=== PATIENT | female | born 1990 | race Caucasian/White ===

== ENCOUNTER 2019-02-24 15:29 | Emergency (ER) | payer OTHER ==
--- NOTE | 2019-02-24 15:40 | ED Physician Documentation ---
PD HPI FEMALE - Stated complaint Stated Complaint: ABD PX/FEMALE - Chief complaint Chief Complaint: Abd Pain - History obtained from History obtained from: Patient - History of Present Illness Timing - onset: Today Timing - duration: Hours (1.5) Timing - details: Abrupt onset Associated symptoms: No: Fever Contributing factors: OB-[employer] AND [employer] DELIVERY [employer]IST History: Prior ectopic Similar symptoms before: Diagnosis ([place] She was treated with 2 rounds of methotrexate last one being 12 or 13 days ago. Her quantitative hCG had maxed at 6000 it was down to 2607 days ago. She is O- and received RhoGam at the time she had the methotrexate.) - Additional information Additional information: This is a 28-year-old woman who was diagnosed with an ectopic and underwent underwent 2 rounds of methotrexate with falling quantitative hCGs. Today she had sudden sharp pain in the left pelvis that radiated down the left leg and upper back. It lasted for about 10 minutes pretty intensely when she felt lightheaded and nauseous. She thought she was going to have diarrhea but did not. She did not take anything for the pain and it eased off quite a bit now. She is had some nasal congestion but no fevers. No dysuria. No history of kidney stones. Patient is O- and received RhoGam 2 weeks ago when she had the methotrexate. Review of Systems Constitutional: denies: Fever Nose: reports: Congestion GI: reports: Abdominal Pain, Nausea. denies: Vomiting, Diarrhea : reports: Other (Known ectopic ). denies: Dysuria Musculoskeletal: reports: Back pain PD PAST MEDICAL HISTORY - Allergies Allergies/Adverse Reactions: Allergies Allergy/AdvReac Type Severity Reaction Status Date / Time No Known Drug Allergies Allergy Verified 02/24/19 15:44 PD ED PE NORMAL - Vitals Vital signs reviewed: Yes - General General: Alert and oriented X 3, No acute distress, Well developed/nourished - Cardiac Cardiac: RRR, No murmur - Respiratory Respiratory: No respiratory distress - Abdomen Abdomen: Soft, Other (Tenderness in the right suprapubic/pelvic area. No guarding.) - Female Female : Pt declined (Patient stated her OB told her not to let anybody do a pelvic exam.) - Derm Derm: Normal color, Warm and dry, No rash - Neuro Neuro: Alert and oriented X 3, No motor deficit, No sensory deficit, Normal speech Results - Vitals Vitals: Vital Signs - 24 hr 02/24/19 02/24/19 15:33 18:27 Temperature 37.1 C Heart Rate 82 76 Respiratory 18 18 Rate Blood Pressure 118/70 116/73 O2 Saturation 100 100 Oxygen O2 Source Room air - Labs Labs: Laboratory Tests 02/24/19 02/24/19 02/24/19 15:50 16:00 16:00 WBC 5.3 RBC 4.40 Hgb 13.2 Hct 38.7 MCV 88.0 MCH 30.0 MCHC 34.1 RDW 13.7 Plt Count 189 MPV 8.5 Neut # (Auto) 3.2 Lymph # (Auto) 1.7 Wirt # (Auto) 0.4 Eos # (Auto) 0.1 Baso # (Auto) 0.0 Absolute Nucleated RBC 0.00 Nucleated RBC % 0.0 HCG, Quant 530.23 Urine Color YELLOW Urine Clarity CLEAR Urine pH 7.0 Ur Specific [place] <=1.005 Urine Protein NEGATIVE Urine Glucose (UA) NEGATIVE Urine Ketones NEGATIVE Urine Occult Blood NEGATIVE Urine Nitrite NEGATIVE Urine Bilirubin NEGATIVE Urine Urobilinogen 0.2 (NORMAL) Ur Leukocyte Esterase NEGATIVE Ur Microscopic Review NOT INDICATED Urine Culture Comments NOT INDICATED PD MEDICAL DECISION MAKING - ED course Complexity details: re-evaluated patient, d/w patient, d/w event management consultant ED course: hCG level was discussed with the patient. She does not have a's acute abdomen. The ultrasound still showed the ectopic but without free fluid in the pelvis. I did consult with Dr. Chowdhury.[place] - Consults Consults: Consulted (name) (Dr. Chowdhury came into the emergency department and evaluated the patient. Does not feel that she is a surgical candidate at this time with appropriately falling beta hCGs. No need for additional RhoGam.) Departure - Departure Disposition: 01 Home, Self Care Clinical Impression: Ectopic Qualifiers: Location of ectopic : ovarian Intrauterine status: without intrauterine Laterality: left Qualified Code(s): O00.202 - Left ovarian without intrauterine Condition: Good Instructions: ED Preg Ectopic Methotrexate Tx Follow-Up: NISA Perry [Provider Group] Comments: [place] him know the outcome of tonight's evaluation. Follow-up with them as directed by them. Return to the emergency department if you have another increase in pain especially if it persists, you feel dizzy or pass out or other problems arise.
[2019-02-24 16:03] LABS: BILIRUBIN,URINE NEGATIVE (NEGATIVE); GLUCOSE, URINE (UA) NEGATIVE (NEGATIVE); KETONES,URINE (UA) NEGATIVE (NEGATIVE); LEUKOCYTE ESTERASE, URINE NEGATIVE (NEGATIVE); NITRITE,URINE NEGATIVE (NEGATIVE); OCCULT BLOOD,URINE NEGATIVE (NEGATIVE); PROTEIN,URINE NEGATIVE (NEGATIVE); UROBILINOGEN,URINE 0.2 (NORMAL) E.U./dL (NORMAL)
[2019-02-24 16:04] LABS: CLARITY,URINE CLEAR (CLEAR)
[2019-02-24 16:29] LABS: BASOPHILS % (AUTO) 0.5 %; EOSINOPHILS # (AUTO) 0.1 10^3/uL (0.0-0.7); EOSINOPHILS % (AUTO) 1.7 %; HGB - HEMOGLOBIN 13.2 g/dL (12.0-16.0); LYMPHOCYTES # (AUTO) 1.7 10^3/uL (1.5-3.5); LYMPHOCYTES % (AUTO) 31.3 %; MEAN CORPUSCULAR HGB CONC 34.1 g/dL (32.0-36.0); MEAN PLATELET VOLUME 8.5 fL (7.9-10.8); MONOCYTES # (AUTO) 0.4 10^3/uL (0.0-1.0); NEUTROPHILS # (AUTO) 3.2 10^3/uL (1.5-6.6); NEUTROPHILS % (AUTO) 59.5 %; PLT - PLATELET COUNT 189 10^3/uL (130-450); RED CELL DISTRIBUTION WIDTH 13.7 % (12.0-15.0); WHITE BLOOD COUNT 5.3 x10^3/uL (4.8-10.8)
--- NOTE | 2019-02-24 17:18 | Ultrasound Report ---
Reason: ectoopic , had MTX, pain today Procedure Date: 02/24/2019 Accession Number: [id number] / [id number] Procedure: US - OB First Trimester CPT Code: FULL RESULT: EXAM: FIRST TRIMESTER OBSTETRIC ULTRASOUND (Less than 11 weeks) EXAM DATE: 02/24/2019 04:17 PM. CLINICAL HISTORY: Ectopic , had MTX, pain today. LMP: Unknown. COMPARISONS: None. TECHNIQUE: Transabdominal and transvaginal ultrasound examination with static image documentation. CLINICAL DATES: ASSESSMENT: Gestational Sac: There is a 2.4 x 2.2 x 2.0 cm thick-walled left adnexal paraovarian cystic structure which appears to contain a yolk sac. Mean diameter 8.9 mm corresponding to 4 weeks 6 day gestation. No intrauterine gestation seen. MATERNAL STRUCTURES: Uterus: Retroverted. Unremarkable. The endometrium measures 6 mm in thickness and is normal appearing. Cervix: Closed. Right Ovary/Adnexa: The ovary measures 2.9 x 1.6 x 2.2 cm, volume 5.3 cc. Unremarkable. Left Ovary/Adnexa: The ovary measures 3.9 x 2.1 x 1.5 cm, volume 6.4 cc. Contains an involuting 1.6 cm corpus luteal cyst. Free Fluid: There is a small volume of simple left pelvic fluid. Other: None. IMPRESSION: 1. Left adnexal ectopic . No evidence of rupture. RADIA The call report notification system was initiated by Dr. Bunny Diaz at 05:08 PM on 02/24/2019. The above call report findings were discussed with Yamilet Grace by Dr. Bunny Diaz at 05:11 PM on 02/24/2019.
[2019-02-24 18:27] VITALS: BP 116/73
== END 2019-02-24 18:56 | disposition home or self-care (01) ==
LOC: ED 15:29
DX: O00.202 Left ovarian pregnancy without intrauterine pregnancy (principal)
CPT/HCPCS: 36415; 76801; 76817; 81001; 81003; 84702; 85025; 86850; 86870; 86900; 86901; 87086; 99283

== ENCOUNTER 2019-04-15 07:24 | Day surgery (SDC) | payer OTHER ==
[2019-04-15] MEDS ORDERED: METHYLENE BLUE 0.5% 50 MG/10 ML AMPULE ONE ×2 (07:25→08:36)
[2019-04-15] MEDS ORDERED: SILVER NITRATE APPLICATOR TOP ONE (07:25)
[2019-04-15] MEDS ORDERED: BUPIVACAINE 0.25% PF 30 ML VIAL ONE (07:26)
[2019-04-15] MEDS ORDERED: BUPIVACAINE 0.25%-EPI 1:200000 PF 30 ML VIAL ONE (07:26)
--- NOTE | 2019-04-15 07:48 | ANESTHESIA ---
Pre-Anesthesia VS, & Labs - Diagnosis ectopic - Procedure diagnostic laparoscopy,d&c, possible oopherectomy and salpingectomy Vital Signs: Temp Pulse Resp BP Pulse Ox 36.4 C L 77 16 98/78 100 04/15/19 07:43 04/15/19 07:43 04/15/19 07:43 04/15/19 07:43 04/15/19 07:43 Height 5 ft 6.14 in Weight (kg) 58.7 kg Body Mass Index 20.6 - NPO >8 hours - Is Patient ?: Yes Home Medications and Allergies Home Medications: Ambulatory Orders No Known Home Medications 04/14/19 No Known Home Medications 04/14/19 Allergies/Adverse Reactions: Allergies Allergy/AdvReac Type Severity Reaction Status Date / Time No Known Drug Allergies Allergy Verified 04/14/19 13:50 Anes History & Medical History - Anesthetic History Anesthesia Complications: reports: No previous complications Family history of Anesthesia Complications: Denies Family history of Malignant Hyperthermia: Denies - Medical History Cardiovascular: reports: None Pulmonary: reports: None Gastrointestinal: reports: None Urinary: reports: Other Musculoskeletal: reports: None Endocrine/Autoimmune: reports: None Skin: reports: None Smoking Status: Never smoker - Surgical History Gynecologic: Other Orthopedic: Other Exam General: Alert, Oriented x3, Cooperative, No acute distress Dental: Other (braceses) Mouth Openin Fingerbreadth Neck Mobility: Normal Mallampati classification: II Thyromental Distance: greater than 6 cm Respiratory: Lungs clear, Normal breath sounds, No respiratory distress, No accessory muscle use Cardiovascular: Regular rate, Normal S1, Normal S2, No murmurs Plan Anesthesia Type: General Consent for Procedure(s) Verified and Reviewed: Yes Code Status: Attempt Resuscitation ASA classification: 1-Healthy patient Is this case an emergency?: No
[2019-04-15] MEDS ORDERED: LACTATED RINGERS 1,000 ML IV ONE ×2 (07:56→11:04)
[2019-04-15 08:18] LABS: HCG UR QUAL NEGATIVE
[2019-04-15] MEDS ORDERED: SCOPOLAMINE PATCH TOP ONE (08:22)
[2019-04-15] MEDS ORDERED: CEFAZOLIN SODIUM IN 0.9 % NACL 2 GM/100 ML BAG IV ONE (08:25)
[2019-04-15] MEDS ORDERED: BUPIVACAINE 0.25%-EPI 1:200000 PF 10 ML VIAL SUBQ ONE ×2 (09:28)
[2019-04-15] MEDS ORDERED: BUPIVACAINE 0.25% PF 30 ML VIAL SUBQ ONE ×2 (09:28)
[2019-04-15] MEDS ORDERED: METHYLENE BLUE 0.5% 50 MG/10 ML AMPULE IR ONE ×2 (09:28)
[2019-04-15] MEDS ORDERED: SUGAMMADEX 200 MG/2 ML VIAL IVP ONE (10:44)
[2019-04-15] MEDS: fentaNYL 100 MCG/2 ML VIAL ONE ×2 (11:03→11:11)
[2019-04-15] MEDS ORDERED: HYDROcod/ACETAM 10 MG/325 MG TABLET PO PRN (11:06)
[2019-04-15] MEDS ORDERED: ONDANSETRON 4 MG/2 ML VIAL IVP PRN (11:06)
--- NOTE | 2019-04-15 11:08 | OPERATIVE REPORT ---
Operative Report - General Planned Procedure: Laparoscopy, removal of ectopic , chromopertubation, suction dilatation and curettage Pre-Op Diagnosis: Ectopic Procedure Performed: Laparoscopy, resection of cornual ectopic , chromopertubation, suction dilatation and curettage Post Op Diagnosis: Left cornual ectopic - Procedure Note Primary Surgeon: Dr. Ashley Leiva Secondary Surgeon: Dr. Mariano Marie Anesthesia Provider: Dr. Aaron Finn Anesthesia Technique: General ET tube, Local Pathology: 1. Uterine contents 2. Left cornual serosa and suspected ectopic IV Fluids (mL): 800 Estimated Blood Loss (mL): 50 Urine Output (mL): 30 Indications: The patient is a 28-year-old 4 para 2-0-2-2 with history of ectopic x2. She has a history of a left ectopic and underwent a suspected left salpingectomy; however, her most recent ectopic also appeared to originate from the left side. She is status post 2 doses of methotrexate at 50 mg/m. She was monitored in the [facility] and in the emergency room x1 for pain. The second dose of methotrexate was administered when her quantitative hCG did not decline as expected. However, after the second it did decline within standards. She then went on a brief trip out of state and upon return continued to have a positive but low serum hCG. This level then increased and doubled but remained low. She had been abstaining from intercourse, so new was not possible, and rise in HCG was not consistent with a viable intrauterine . A repeat pelvic ultrasound showed continued presence of a 1.6 x 2.2 x 3.3 cm echogenicity between the left ovary and the uterus, consistent with a suspected ectopic . She also had a new unilocular right ovarian cyst, measuring 3.5 x 4.2 x 4.5 cm. The echoes of the cyst were consistent with a suspected hemorrhagic cyst. The patient was desiring surgical evaluation for the persistent ectopic. She was also desiring surgery to evaluate whether the left fallopian tube was truly absent or residual from her last surgery. Additionally, she has a family history of endometriosis and wondered if that may be present and affecting her fertility. On the day of surgery her urine hCG was negative in the preop hold area. However, again the patient desired diagnostic laparoscopy to further evaluate the pelvis and the status of the fallopian tubes. The plan for surgery was discussed with the patient and included laparoscopic evaluation chromopertubation of the fallopian tubes, removal of the ectopic , and a suction dilation and curettage for a possible intrauterine that failed. The risks, benefits, limitations, alternatives, and expectations of surgery were discussed. The consent was reviewed and signed prior to the date of surgery. Findings: Exam under anesthesia: The uterus was 7 weeks in size and retroverted. A right adnexal fullness was appreciated and consistent with the known right ovarian cystic mass. A 2 to 3 cm rounded mass was present at the left adnexa as well. Operative findings: The residual cornual region of the left fallopian tube was enlarged approximately 2 to 3 cm, suspicious for a cornual fallopian tube on the left versus a cornual uterine . The uterus was otherwise normal in appearance. The right fallopian tube was normal in appearance. The right ovary was enlarged with an approximately 4-1/2 cm hemorrhagic-appearing cyst. The left ovary was normal in appearance. The appendix, liver, and gallbladder edge were visualized and appeared normal. There were no endometriosis lesions or adhesions noted. Opening of the left cornual region of the uterus noted a small to moderate amount of tissue s uspicious for products of conception. The overlying corneal serosa was removed as well as the underlying tissue and sent for pathology. - Other Other Information/Narrative: The patient was taken to the main operating room, where general endotracheal anesthesia was administered. She was then placed in low dorsal lithotomy position with her lower extremities in yellow-fin stirrups. Perineum, vagina, and abdomen were prepped and draped in sterile fashion, and desai catheter was placed. Surgical time-out was then performed. Sterile bivalve speculum was then placed, and a single-toothed tenaculum used to grasp the anterior lip of the cervix. Local anesthesia was administered with 0.25% marcaine with epinephrine injected at the 0200, 0400, 0700, and 1000 positions. The cervical os was then serially dilated with Hilario dilators until a 7 mm curved, rigid suction curette could be introduced. Suction curettage was then performed, followed by sharp curettage. A small amount of tissue, clot, and blood was obtained. Good crie was noted on all four hull of the uterus. The suction curette was then reintroduced to remove any remaining products of conception. A Zumi uterine manipulator (primed with dilute methylene blue for chromopertubation) was placed, then the tenaculum and speculum were removed. Attention was then turned to the patients abdomen for laparoscopy. Local anesthetic with 0.25% Marcaine was injected infraumbilically, and a 7 mm vertical skin incision was made with a scalpel. The zero degree 5 mm laparoscope was inserted into a 5 mm trocar and advanced into the abdominal cavity using Optiview technique. Gas insufflation was initiated as the trocar obturator was removed and camera replaced. Correct intraperitoneal placement of the trocar was noted upon further insufflation. Additional local anesthetic was administered, then a second and third 5 mm port placed at the right then left lower quadrants under direct visualization with the laparoscope. The patient was placed in Trendelenburg. Findings were as noted above. Chromopertubation was then performed, injecting dilute methylene blue into the uterine cavity. Spillage was noted easily from the right fallopian tube, and a small amount emanated from the central portion of the cornual tubal ectopic. Attention was then turned to the removal of the cornual left tube and ectopic . Using a PlasmaKinetic, the tubal mucosa was cauterized and cut to open the residual tube. Tissue consistent with products of conception was removed with a grasper and sent for pathology. Once the tissue was removed, cautery was applied to control any bleeding, and the site irrigated. The depth of dissection appeared to be mainly residual tube with minimal to no dissection into the myometrium. The serosa was closed with a baseball suture technique using an 0 V-Lock suture. The umbilical port was enlarged to a 12 mm in order to placed the V-Lock device. Hemostasis was ensured, and the pelvis was copiously irrigated. Repeat chromopertubation with compression on the right proximal tube did not result in any spillage from the left side. The instruments were then removed from the abdomen, and the carbon dioxide gas allowed to escape. The trocars were removed from the abdomen. The umbilical incision was closed with 0 vicryl at the level of the fascia, then the skin at the umbilical and lower quadrant ports were then closed with Dermabond skin glue. The uterine manipulator was then removed, and the tenaculum sites hemostatic after application of silver nitrate. The patient was then repositioned supine, extubated, and awakened. The patient tolerated the procedure well. Sponge, lap, and needle count were correct x 3. She was taken to the recovery room in stable condition.
[2019-04-15] MEDS ORDERED: ONDANSETRON 4 MG/2 ML VIAL ONE (12:13)
[2019-04-15] MEDS ORDERED: HYDROcod/ACETAM 10 MG/325 MG TABLET ONE (12:49)
[2019-04-15 13:50] VITALS: BP 107/63
== END 2019-04-15 07:25 | disposition home or self-care (01) ==
LOC: SDS 07:24
PROVIDERS: ATTEND Obstetrics & Gynecology
PROC: 3E0P8KZ Introduction of Other Diagnostic Substance into Female Reproductive, Via Natural or Artificial Opening Endoscopic (ICD-10-PCS; 2019-04-15)
PROC: 10T24ZZ Resection of Products of Conception, Ectopic, Percutaneous Endoscopic Approach (ICD-10-PCS; principal; 2019-04-15 08:30)
PROC: 0UDB7ZZ Extraction of Endometrium, Via Natural or Artificial Opening (ICD-10-PCS; 2019-04-15 08:30)
DX: O00.80 Other ectopic pregnancy without intrauterine pregnancy (principal); N83.201 Unspecified ovarian cyst, right side; Z84.2 Family history of other diseases of the genitourinary system
CPT/HCPCS: 58350; 59150; 59899; 81025; A9270; J0690; J3490; J7120

== ENCOUNTER 2019-07-21 11:22 | Emergency (ER) | payer OTHER ==
--- NOTE | 2019-07-21 13:42 | Ultrasound Report ---
Reason: prior ectopics pain early Procedure Date: 07/21/2019 Accession Number: [id number] / [id number] Procedure: US - OB First Trimester CPT Code: FULL RESULT: EXAM: FIRST TRIMESTER OBSTETRIC ULTRASOUND (Less than 11 weeks) EXAM DATE: 07/21/2019 12:47 PM. CLINICAL HISTORY: First trimester . LMP: 06/15/2019. COMPARISONS: None. TECHNIQUE: Transabdominal and transvaginal ultrasound examination with static image documentation. CLINICAL DATES: EGA 5 weeks 1 day with LU 03/21/2020 based on LMP. ASSESSMENT: Gestational Sac: Single intrauterine. Mean gestational sac diameter: 3.9 mm = 5 weeks 1 day. Embryo: Not visualized. Cardiac activity: Not applicable. Yolk sac: Not visualized. Amniotic fluid: Not accurately assessed at this gestational age. Early placenta: Not visible at this gestational age. Other: No perigestational fluid collection demonstrated. MATERNAL STRUCTURES: Uterus: Retroverted. Unremarkable. Cervix: Closed. Right Ovary/Adnexa: The ovary measures 3.8 x 3.0 x 3.5 cm, volume 20.8 cc. Small 1.5 cm collapsed corpus luteal cyst is seen within otherwise unremarkable. Left Ovary/Adnexa: The ovary measures 2.3 x 1.3 x 1.8 cm, volume 2.8 cc. Unremarkable. Free Fluid: None. Other: None. IMPRESSION: 1. Single intrauterine gestation of uncertain viability with tiny intrauterine gestational sac seen. No pole or yolk sac is seen at this time. Findings may represent early intrauterine . Missed is not excluded. 2. No acute pelvic abnormality is demonstrated otherwise. RADIA
[2019-07-21 13:50] VITALS: BP 120/74
--- NOTE | 2019-07-21 13:59 | ED Physician Documentation ---
PD HPI FEMALE - Stated complaint Stated Complaint: FEMALE /5 WKS OB - Chief complaint Chief Complaint: Abd Pain - History obtained from History obtained from: Patient - History of Present Illness Timing - onset: Today Timing - duration: Hours Timing - details: Gradual onset, Still present Associated symptoms: Pelvic pain Contributing factors: OB-GENERAL DUTY NURSE History: G (5), P (2), Prior ectopic (2) Similar symptoms before: Diagnosis (ectopic) Recently seen: Clinic (this morning) - Additional information Additional information: 28-year-old female who is recently become has had 2 prior ectopic pregnancies in she has an early and she has developed some pain in the left lower pelvis. This is the area that she had her last ectopic. She was asked by her provider to come to the emergency department for evaluation. She has had rising quantitative hCG that appears to be rising appropriately. Review of Systems Constitutional: denies: Fever Eyes: denies: Decreased vision Ears: denies: Ear pain Nose: denies: Congestion Throat: denies: Sore throat Cardiac: denies: Chest pain / pressure Respiratory: denies: Cough GI: reports: Abdominal Pain. denies: Nausea, Vomiting : denies: Dysuria, Frequency Musculoskeletal: denies: Neck pain, Back pain, Extremity pain Neurologic: denies: Generalized weakness, Focal weakness, Numbness PD PAST MEDICAL HISTORY - Past Medical History Cardiovascular: None Respiratory: None Endocrine/Autoimmune: None GI: None : Other HEENT: None Psych: None Musculoskeletal: None Derm: None - Past Surgical History Ortho: Other /GENERAL DUTY NURSE: Other - Present Medications Home Medications: Ambulatory Orders Medication Instructions Recorded Confirmed No Known Home Medications 04/14/19 04/14/19 - Allergies Allergies/Adverse Reactions: Allergies Allergy/AdvReac Type Severity Reaction Status Date / Time No Known Drug Allergies Allergy Verified 04/14/19 13:50 - Social History Does the pt smoke?: No Smoking Status: Never smoker Does the pt drink ETOH?: Yes PD ED PE NORMAL - Vitals Vital signs reviewed: Yes (tachy ) - General General: Alert and oriented X 3, No acute distress, Well developed/nourished - HEENT HEENT: Atraumatic, PERRL, EOMI - Neck Neck: Supple, no meningeal sign, No bony TTP - Respiratory Respiratory: No respiratory distress - Derm Derm: Normal color, Warm and dry, No rash - Extremities Extremities: No deformity, No edema - Neuro Neuro: Alert and oriented X 3, hog counter 2-12 intact, No motor deficit, No sensory deficit, Normal speech Eye Opening: Spontaneous Motor: Obeys Commands Verbal: Oriented GCS Score: 15 - Psych Psych: Normal mood, Normal affect Results - Vitals Vitals: Vital Signs - 24 hr 07/21/19 07/21/19 11:28 13:49 Temperature 34.9 C L Heart Rate 117 H 114 H Respiratory 14 18 Rate Blood Pressure 133/65 H 120/74 O2 Saturation 100 100 Oxygen O2 Source Room air - Labs Labs: Laboratory Tests 07/21/19 11:55 HCG, Quant [id number] - Rads (name of study) OB u/s Radiology: Prelim report reviewed (Impression: 1. Single intrauterine gestation of uncertain viability with tiny intrauterine gestational sac seen. No pole or yolk sac is seen at this time. Findings may represent early intrauterine . Missed is not excluded. 2 No acute pelvic abnormality is demonstrated otherwise.), EMP read indepedently, See rad report PD MEDICAL DECISION MAKING - ED course Complexity details: considered differential, d/w patient, d/w family ED course: 28-year-old female with a history of ectopic has pain in the left side where she is had a previous ectopic. Ultrasound imaging today reveals a 5-week gestational sac in the uterus and the patient is quite happy about this. Departure - Departure Disposition: 01 Home, Self Care Clinical Impression: Intrauterine Condition: Stable Instructions: ED Care Follow-Up: Elizabteh Rosenthal MD [Primary Care Provider] -
== END 2019-07-21 14:08 | disposition home or self-care (01) ==
LOC: ED 11:22
DX: O99.89 Other specified diseases and conditions complicating pregnancy, childbirth and the puerperium (principal); R10.9 Unspecified abdominal pain; Z3A.01 Less than 8 weeks gestation of pregnancy
CPT/HCPCS: 36415; 76801; 76817; 84702; 99284

== ENCOUNTER 2023-08-17 22:24 | Emergency (ER) | payer OTHER ==
[2023-08-17 23:13] LABS: BASOPHILS % (AUTO) 0.4 %; EOSINOPHILS # (AUTO) 0.1 10^3/uL (0.0-0.7); EOSINOPHILS % (AUTO) 1.1 %; HCT - HEMATOCRIT 39.5 % (37.0-47.0); HGB - HEMOGLOBIN 13.4 g/dL (12.0-16.0); LYMPHOCYTES # (AUTO) 2.1 10^3/uL (1.5-3.5); LYMPHOCYTES % (AUTO) 37.9 %; MEAN CORPUSCULAR HEMOGLOBIN 29.5 pg (27.0-31.0); MEAN CORPUSCULAR HGB CONC 33.9 g/dL (32.0-36.0); MONOCYTES # (AUTO) 0.4 10^3/uL (0.0-1.0); MONOCYTES % (AUTO) 6.3 %; NEUTROPHILS % (AUTO) 54.1 %; PLT - PLATELET COUNT 194 10^3/uL (130-450); RED BLOOD COUNT 4.54 10^6/uL (4.20-5.40); RED CELL DISTRIBUTION WIDTH 12.1 % (12.0-15.0); WHITE BLOOD COUNT 5.6 x10^3/uL (4.8-10.8)
[2023-08-17 23:31] LABS: ALBUMIN 4.9 g/dL (3.2-5.5); ALBUMIN/GLOBULIN RATIO 2.1 (1.0-2.2); BILIRUBIN,TOTAL 0.3 mg/dL (0.2-1.0); CALCIUM 9.8 mg/dL (8.5-10.3); CREATININE 0.8 mg/dL (0.6-1.3); POTASSIUM 3.3 mmol/L (3.5-4.5); TOTAL PROTEIN 7.2 g/dL (6.4-8.9)
[2023-08-17 23:35] LABS: HCG UR QUAL POSITIVE
--- NOTE | 2023-08-18 00:38 | Ultrasound Report ---
PROCEDURE: OB First Trimester w/TV INDICATIONS: pelvic pain, R OUTSIDE/PRIOR DATING DATA: Last menstrual period (LMP): Unknown. LMP-based estimated date of delivery (LU): Unknown. First dating scan (date and location): 08/17/2023. Estimated date of delivery (LU) from first dating scan: Not applicable. TECHNIQUE: Real-time scanning was performed of the fetus and maternal pelvic organs, with image documentation. Endovaginal scanning was also performed to better visualize the fetus and maternal ovaries. COMPARISON: None. FINDINGS: Intrauterine gestational sac is present measuring 4 mm corresponding to 5 weeks 1 day. No f etal pole is identified. Maternal organs: Echogenic focus is present in the right ovary. It measures approximately 4 mm. A le ft corpus luteal cyst is present. IMPRESSION: Intrauterine gestational sac without visualized pole corresponding to 5 weeks 1 day. Recommend short interval imaging follow-up in correlation of beta hCG levels for correlation of potential bligh kris ovum or progression. Focal area of increased echogenicity within the right ovary overall nonspecific. This could represent a small area of calcification. Reviewed by: Andreina Coffey MD on 08/18/2023 12:37 AM PST Approved by: Andreina Coffey MD on 08/18/2023 12:37 AM PST Station ID: [id number]
--- NOTE | 2023-08-18 00:52 | ED Physician Documentation ---
History of Present Illness - Stated complaint Stated Complaint: LT LOWER SIDE PX - Chief complaint Chief Complaint: Abd Pain - Additonal information Additional information: Patient 33-year-old female presenting to the emergency department with left lower pelvic pain. This is in the setting of early identified . She does report a past medical significant for 2 ectopic pregnancies. Reports that she had similar pain during her previous ectopic . Pain has been ongoing x 1 day, is intermittent in nature, is not associated with nausea, vomiting or diarrhea. She denies any other complaints associated with her visit to the emergency department today. She is taking a vitamin but no prescription medications.She denies any vaginal discharge, painful urination or vaginal bleeding. Review of Systems Constitutional: denies: Fever Eyes: denies: Loss of vision Ears: denies: Loss of hearing Nose: denies: Rhinorrhea / runny nose Throat: denies: Dental pain / toothache Cardiac: denies: Chest pain / pressure Respiratory: denies: Dyspnea GI: reports: Abdominal Pain : denies: Dysuria PD PAST MEDICAL HISTORY - Past Medical History Past Medical History: Yes Cardiovascular: None Respiratory: None Endocrine/Autoimmune: None GI: None COIL WINDER: Ectopic : Other HEENT: None Psych: None Musculoskeletal: None Derm: None - Past Surgical History Past Surgical History: Yes Ortho: Other /COIL WINDER: Other - Present Medications Home Medications: Ambulatory Orders Medication Instructions Recorded Confirmed No Known Home Medications 04/14/19 04/14/19 - Allergies Allergies/Adverse Reactions: Allergies Allergy/AdvReac Type Severity Reaction Status Date / Time No Known Drug Allergies Allergy Verified 08/17/23 22:30 - Social History Does the pt smoke?: No Smoking Status: Never smoker Does the pt drink ETOH?: Yes Does the pt have substance abuse?: No - Immunizations Immunizations are current?: Yes PD ED PE NORMAL - General General: Alert and oriented X 3 - HEENT HEENT: Atraumatic - Neck Neck: Supple, no meningeal sign - Cardiac Cardiac: RRR - Respiratory Respiratory: No respiratory distress - Abdomen Abdomen: Normal bowel sounds - Female Female : Deferred - Rectal Rectal: Deferred Results - Vitals Vitals: Vital Signs - 24 hr 08/17/23 08/18/23 08/18/23 22:30 00:34 01:24 Temperature 36.5 C Heart Rate 119 H 83 83 Respiratory 16 18 18 Rate Blood Pressure 130/80 109/66 109/66 O2 Saturation 100 97 98 Oxygen O2 Source Room air - Labs Labs: Laboratory Tests 08/17/23 08/17/23 08/17/23 23:08 23:08 23:15 WBC 5.6 RBC 4.54 Hgb 13.4 Hct 39.5 MCV 87.0 MCH 29.5 MCHC 33.9 RDW 12.1 Plt Count 194 MPV 10.0 Neut # (Auto) 3.0 Lymph # (Auto) 2.1 Sampson # (Auto) 0.4 Eos # (Auto) 0.1 Baso # (Auto) 0.0 Absolute Nucleated RBC 0.00 Nucleated RBC % 0.0 Sodium 138 Potassium 3.3 L Chloride 107 Carbon Dioxide 24 Anion Gap 7.0 BUN 15 Creatinine 0.8 Estimated GFR (MDRD) 84 L Glucose 130 H Calcium 9.8 Total Bilirubin 0.3 AST 12 ALT 9 L Alkaline Phosphatase 54 Total Protein 7.2 Albumin 4.9 Globulin 2.3 Albumin/Globulin Ratio 2.1 Lipase 70 Beta HCG, Quant Urine Color Cancelled Urine Clarity Cancelled Urine pH Cancelled Ur Specific [place] Cancelled Urine Protein Cancelled Urine Glucose (UA) Cancelled Urine Ketones Cancelled Urine Occult Blood Cancelled Urine Nitrite Cancelled Urine Bilirubin Cancelled Urine Urobilinogen Cancelled Ur Leukocyte Esterase Cancelled Ur Microscopic Review Cancelled Urine Culture Comments Cancelled Urine HCG, Qual 08/17/23 08/17/23 08/18/23 23:15 23:15 00:00 WBC RBC Hgb Hct MCV MCH MCHC RDW Plt Count MPV Neut # (Auto) Lymph # (Auto) Sampson # (Auto) Eos # (Auto) Baso # (Auto) Absolute Nucleated RBC Nucleated RBC % Sodium Potassium Chloride Carbon Dioxide Anion Gap BUN Creatinine Estimated GFR (MDRD) Glucose Calcium Total Bilirubin AST ALT Alkaline Phosphatase Total Protein Albumin Globulin Albumin/Globulin Ratio Lipase Beta HCG, Quant 3169.9 Urine Color YELLOW Urine Clarity CLEAR Urine pH 6.0 Ur Specific [place] <=1.005 Urine Protein NEGATIVE Urine Glucose (UA) NEGATIVE Urine Ketones NEGATIVE Urine Occult Blood NEGATIVE Urine Nitrite NEGATIVE Urine Bilirubin NEGATIVE Urine Urobilinogen 0.2 (NORMAL) Ur Leukocyte Esterase NEGATIVE Ur Microscopic Review NOT INDICATED Urine Culture Comments NOT INDICATED Urine HCG, Qual POSITIVE PD Medical Decision Making - ED course Complexity details: reviewed results, re-evaluated patient, d/w patient ED course: Patient 33-year-old female presenting to the emergency department with left lower pelvic pain in setting of early trimester . Afebrile, hemodynamically stable on arrival to the emergency department. Labs obtained all generally within normal limits or nonactionable.She was noted to have mild hypokalemia and I instructed her in strategies for oral repletion including the consumption of potassium rich foods such as bananas, tomatoes, radishes. Ultrasonography demonstrates early intrauterine as well as a corpus luteal cyst but no indications recurrent ectopic .Small area of calcification noted on the right ovary as well as potential blighted ovum per radiology with recommendation for short interval follow-up. Patient was offered medication for pain control which she declined, stating that she wishes to manage her pain with Tylenol which she intends to take at home. She has not yet established herself with an TRAILER TRUCK DRIVER in the region and will be provided with information for follow-up. Due to extremeDelay, after waiting for several hours for her urine analysis to be completed she did elect to leave prior to its completion. Will give instructions for return to the emergency room for new or worsening symptoms or in 48 hours for recheck of her quantitative beta-hCG .Clear return precautions given. Departure - Departure Disposition: 01 Home, Self Care Clinical Impression: Intrauterine Follow-Up: Araseli Fairchild DO [Provider Admit Priv/Credential] - Comments: Thank you for allowing us to care for you today [facility]. The ultrasound performed today showed an early developing intrauterine with no indications of ectopic . This is very reassuring But given your complex history you would benefit from a short interval recheck of your quantitative beta-hCG, all hormone associated with to ensure that your is continuing to progress. Additionally it is important that you establish yourself with an TRA[facility]ER TRUCK DRIVER as soon as possible. I would like you to return to the emergency department in 48 hours for recheck of your lab work if you are unable to arrange this on an outpatient basis. While it is true that some amount of pelvic pain and pelvic cramping is considered normal, particularly in early given your complex history I do want you to continue to monitor your symptoms at home very closely and please return for any persistent, new or worsening symptoms.You can take Tylenol, 650 mg every 6 hours at home for pain control. Please do not exceed more than 3 g in a day.Hot packsOr heating pads can also be very helpful in the management of the symptoms. Attached in this discharge packet you will find contact information for local area TRA[facility]ER TRUCK DRIVER. Please follow-up with them as soon as possible as well as with your primary care doctor. Again if it anytime you have new or worsening symptoms please return Forms: PCP List Discharge Date/Time: 08/18/23 01:24
[2023-08-18 01:15] VITALS: BP 109/66
[2023-08-18 01:16] LABS: BILIRUBIN,URINE NEGATIVE (NEGATIVE); GLUCOSE, URINE (UA) NEGATIVE (NEGATIVE); KETONES,URINE (UA) NEGATIVE (NEGATIVE); LEUKOCYTE ESTERASE, URINE NEGATIVE (NEGATIVE); NITRITE,URINE NEGATIVE (NEGATIVE); OCCULT BLOOD,URINE NEGATIVE (NEGATIVE); PROTEIN,URINE NEGATIVE (NEGATIVE); UROBILINOGEN,URINE 0.2 (NORMAL) E.U./dL (NORMAL)
[2023-08-18 01:35] VITALS: O2SAT 98
[2023-08-18 02:41] LABS: CLARITY,URINE CLEAR (CLEAR)
== END 2023-08-18 01:24 | disposition home or self-care (01) ==
LOC: ED 22:24
DX: O99.281 Endocrine, nutritional and metabolic diseases complicating pregnancy, first trimester (principal); Z3A.01 Less than 8 weeks gestation of pregnancy; E87.6 Hypokalemia; O34.81 Maternal care for other abnormalities of pelvic organs, first trimester; N83.12 Corpus luteum cyst of left ovary
CPT/HCPCS: 36415; 80053; 81001; 81003; 81025; 83690; 84702; 85025; 87086; 99283; 99284

== ENCOUNTER 2023-08-20 11:32 | Emergency (ER) | payer OTHER ==
[2023-08-20 11:56] VITALS: O2SAT 100
--- NOTE | 2023-08-20 13:27 | ED Physician Documentation ---
History of Present Illness - Stated complaint Stated Complaint: POSS ECTOPIC ,REPEAT LABS - Chief complaint Chief Complaint: Abd Pain - History obtained from History obtained from: Patient - Additonal information Additional information: Patient is a G7, P4 with 2 prior ectopics presenting for evaluation of a repeat hCG levels. Patient was in the emergency department 2 days ago with cramping in early . Her hCG level was around 3000 and she had an ultrasound that showed a gestational sac in the uterus. She was told to have a recheck of her hCG in 2 days.She denies having any pain or bleeding today. [place] [facility] [place] her as was the walk-in clinic also not willing to see her so she has come to the emergency department to have her blood drawn.She has been referred to the OB clinic in [place]. Review of Systems Constitutional: denies: Fever GI: denies: Abdominal Pain : denies: Dysuria, Vaginal bleeding Musculoskeletal: denies: Back pain PD PAST MEDICAL HISTORY - Past Medical History Past Medical History: Yes Cardiovascular: None Respiratory: None Endocrine/Autoimmune: None GI: None HAND COOPER HELPER: Ectopic : Other HEENT: None Psych: None Musculoskeletal: None Derm: None - Past Surgical History Past Surgical History: Yes Ortho: Other /HAND COOPER HELPER: Other - Present Medications Home Medications: Ambulatory Orders Medication Instructions Recorded Confirmed No Known Home Medications 04/14/19 08/20/23 - Allergies Allergies/Adverse Reactions: Allergies Allergy/AdvReac Type Severity Reaction Status Date / Time No Known Drug Allergies Allergy Verified 08/20/23 11:49 - Social History Does the pt smoke?: No Smoking Status: Never smoker Does the pt drink ETOH?: Yes Does the pt have substance abuse?: No - Immunizations Immunizations are current?: Yes PD ED PE NORMAL - General General: Alert and oriented X 3, No acute distress, Well developed/nourished - HEENT HEENT: Atraumatic - Neck Neck: Supple, no meningeal sign - Cardiac Cardiac: RRR - Respiratory Respiratory: No respiratory distress, Clear bilaterally - Abdomen Abdomen: Normal bowel sounds, Soft, Non tender, Non distended - Derm Derm: Warm and dry Results - Vitals Vitals: Vital Signs - 24 hr 08/20/23 08/20/23 11:44 13:37 Temperature 36.8 C 36.7 C Heart Rate 99 87 Respiratory 15 18 Rate Blood Pressure 117/72 98/77 O2 Saturation 100 100 Oxygen O2 Source Room air - Labs Labs: Laboratory Tests 08/20/23 12:00 Beta HCG, Quant 7135.8 PD Medical Decision Making - ED course Complexity details: reviewed results, d/w patient ED course: Patient presenting for recheck of her hCG level as [facility] or to the walk-in clinic to have this done. She was seen here 2 days ago with abdominal pain in the setting of early . Her ultrasound at that time showed a gestational sac in the uterus. Today she is without any symptoms. Her hCG has doubled in 2 days which is a good sign. I do think she should still have a repeat ultrasound in The next week As no pole was seen on the initial ultrasound. Patient is aware of this recommendation and will reach out to the OB she was referred to in [place]. She is counseled on strict return precautions. Departure - Departure Disposition: 01 Home, Self Care Clinical Impression: at early stage Condition: Stable Instructions: ED Care Follow-Up: [facility] [Provider Group] - Within 1 week Comments: Your HCG levels are increasing appropriately which is a good sign. 08/18: 3169 08/20: 7135 I do think you need another ultrasound here in the next week and would recommend either reaching out to the OB you are referred to in [place] to order the ultrasound or to your primary care through the [facility] to order a follow-up ultrasound. If at anytime you develop any worsening symptoms such as significant abdominal pain, significant bleeding or any other concerns please return to the ER. Forms: PCP List Discharge Date/Time: 08/20/23 13:38
[2023-08-20 13:42] VITALS: BP 98/77
== END 2023-08-20 13:38 | disposition home or self-care (01) ==
LOC: ED 11:32
DX: O09.10 Supervision of pregnancy with history of ectopic pregnancy, unspecified trimester (principal); Z3A.00 Weeks of gestation of pregnancy not specified
CPT/HCPCS: 36415; 84702; 99283

== ENCOUNTER 2024-04-03 10:50 | Inpatient (IN) | payer OTHER ==
--- NOTE | 2024-04-03 11:28 | HISTORY & PHYSICAL EXAMINATION ---
Admit History - Visit Reason Visit Reason: Other - : 7 Parity: 4 Premature: 0 Ectopic: 2 : 4 [facility] Smoking Status: Never smoker - Mother's Labs Mother's Blood Type: positive: O Mother's RH: positive: Negative GBS: positive: Group B Strep Positive Rubella Status: positive: Immune - Other Maternal History Other Maternal History: HPI: This 33 yo @ 38 weeks by sure LMP and 8+1 week ultrasound. GBS positive. Seen at 37+5 weeks gestation and found to be advanced dilation 450/- 1, vertex by exam. [place] score 8. We reviewed management options at length and patient desires to begin GBS prophylaxis and any augmentation to be timed after epidural placement, and 4 hours after antibiotic treatment initiation. has remained uncomplicated. Has been followed by Dr. San for obstetrical care, initiated at 9 weeks and has been seen regularly for care until [facility] at 35+1 weeks gestation. No Headache, visual changes or right upper quadrant abdominal pain. Denies urinary urgency or dysuria. Medical Hx: mild anemia in Surgical Hx: left knee repair 2006, right knee repair 2007, ectopic 2016 & 2018 Social Hx: Monogamous with male partner. Stopped drinking alcohol due to . Denies current use of tobacco, marijuana or other recreational drugs. Reports that she is safe in current relationship. Family Hx: Denies family history of congenital anomalies, Cystic Fibrosis or chromosomal abnormalities. HTN - PGF, mother Allergies: NKDA Pre- BMI: 20.2 Important Information Blood Type- O Rh Factor- Negative Antibody Screen- Negative Antibody Screen- Negative Rubella Imm- Immune Treponema/RPR- Non-Reactive Hep B Surface Ag- Non-Reactive Hep C Virus Ab- Non-Reactive HIV-1/HIV-2 Screen- Non-Reactive Varicella AB Screen- Immune Urine Culture- Negative Group B Strep- Positive Pap- Negative/Normal NIPS- Negative 1 hr gtt: 116 FAS: EFW 31%, fundal placenta, EIF in left ventricle. Otherwise WNL ROS: All other symptoms reviewed and were negative except per HPI. OB Hx: G1: 07/19/2015 G2: Ectopic, 2015 G3: 04/11/2017 G4: Ectopic, 2018 G5: 03/22/2020 G6: 04/05/2022 G7: Current. Physical exam: Normocephalic, atraumatic Heart RRR w/o M/G/R Lungs CTAB Abdomen gravid, soft, nontender. EFW 3600 FHR baseline 140, moderate variability, + accelerations, no decelerations Contractions irregular. Soft resting tone SVE 4/50/-1, vertex by exam (04/01/2024) membranes intact Bilateral LE's no edema Mood is good. Today's CBC: H&H 12.5/36.8, PLT 166 Assessment: 33 yo @ 38 weeks gestation by 8+1 wk U/S Advanced dilation & History or precipitous labor FHR 140 Cat 1 GBS Positive Plan: Admit to [facility] for GBS prophylaxis Continuous monitoring/ Intermittent heart rate auscultation. Jacuzzi PRN. Nitrous oxide PRN. Epidural PRN Maternal Request. Anticipate . Patient verbally consents to my participation in her care in my role as a student nurse pulp drier. SALAZAR Miner, Student Nurse Hydraulic Chair Assembler Meds/Allgy - Home Medications Home Medications: Ambulatory Orders Medication Instructions Recorded Confirmed No Known Home Medications 04/14/19 08/20/23 - Allergies Allergies/Adverse Reactions: Allergies Allergy/AdvReac Type Severity Reaction Status Date / Time No Known Drug Allergies Allergy Verified 04/03/24 17:20 Plan for Labor - Plan For Labor I expect patient to be DC'd or transferred within 96 hours.: Yes
[2024-04-03] MEDS ORDERED: fentaNYL 100 MCG/2 ML VIAL IVP PRN (11:50)
[2024-04-03] MEDS ORDERED: TRANEXAMIC ACID IN NACL 1,000 MG/100 ML BAG IV PRN (11:50)
[2024-04-03] MEDS ORDERED: SODIUM CHLORIDE FLUSH 0.9% 10 ML SYRINGE IVP PRN (11:50)
[2024-04-03] MEDS ORDERED: OXYTOCIN/SODIUM CHLORIDE 500 ML IV PRN (11:50)
[2024-04-03] MEDS ORDERED: hydrALAZINE INJ 20 MG/ML VIAL IVP PRN ×2 (11:50)
[2024-04-03] MEDS ORDERED: miSOPROStoL 200 MCG TABLET PR PRN (11:50)
[2024-04-03] MEDS ORDERED: CARBOPROST TROMETHAMINE 250 MCG/ML VIAL IM PRN (11:50)
[2024-04-03] MEDS ORDERED: TERBUTALINE 1 MG/ML VIAL SUBQ PRN (11:50)
[2024-04-03] MEDS ORDERED: lidocaine 1% 20 ML MDV ID PRN (11:50)
[2024-04-03] MEDS ORDERED: OXYTOCIN 10 UNIT/ML VIAL IM PRN (11:50)
[2024-04-03] MEDS ORDERED: METHYLERGONOVINE 0.2 MG/ML VIAL IM PRN (11:50)
[2024-04-03] MEDS ORDERED: LABETALOL 20 MG/4 ML SYRINGE IVP PRN ×3 (11:50)
[2024-04-03] MEDS ORDERED: NIFEdipine 10 MG CAPSULE PO PRN (11:50)
[2024-04-03] MEDS ORDERED: LACTATED RINGERS 1,000 ML IV PRN (11:50)
[2024-04-03] MEDS ORDERED: miSOPROStoL 200 MCG TABLET BC PRN (11:50)
[2024-04-03] MEDS ORDERED: SODIUM CHLORIDE FLUSH 0.9% 10 ML SYRINGE IVP SCH (12:00)
[2024-04-03] MEDS: AMPICILLIN 2 GM in SODIUM CHLORIDE 0.9% MINIBAG 100 ML IV ONE (12:18)
[2024-04-03] MEDS: LACTATED RINGERS 1,000 ML IV SCH (12:18)
[2024-04-03 12:48] LABS: BASOPHILS % (AUTO) 0.3 %; EOSINOPHILS # (AUTO) 0.1 10^3/uL (0.0-0.7); EOSINOPHILS % (AUTO) 0.5 %; HCT - HEMATOCRIT 36.8 % (37.0-47.0); HGB - HEMOGLOBIN 12.5 g/dL (12.0-16.0); LYMPHOCYTES # (AUTO) 1.6 10^3/uL (1.5-3.5); LYMPHOCYTES % (AUTO) 14.1 %; MEAN CORPUSCULAR HEMOGLOBIN 29.4 pg (27.0-31.0); MEAN CORPUSCULAR VOLUME 86.6 fL (81.0-99.0); MEAN PLATELET VOLUME 10.6 fL (7.9-10.8); MONOCYTES # (AUTO) 0.6 10^3/uL (0.0-1.0); NEUTROPHILS # (AUTO) 8.7 10^3/uL (1.5-6.6); NEUTROPHILS % (AUTO) 79.3 %; PLT - PLATELET COUNT 166 10^3/uL (130-450); RED BLOOD COUNT 4.25 10^6/uL (4.20-5.40); RED CELL DISTRIBUTION WIDTH 14.5 % (12.0-15.0)
[2024-04-03] MEDS: AMPICILLIN 1 GM in SODIUM CHLORIDE 0.9% MINIBAG 100 ML IV SCH (15:58)
[2024-04-03] MEDS ORDERED: LIDOCAINE 2%-EPI 1:100000 20 ML MDV ONE (16:12)
[2024-04-03] MEDS ORDERED: ROPIVACAINE 0.2% 200 MG/100 ML BAG EP ONE (16:12)
--- NOTE | 2024-04-03 16:42 | ANESTHESIA ---
Pre-Anesthesia VS, & Labs - Diagnosis active labor - Procedure vaginal delivery Vital Signs: Temp Pulse Resp BP Pulse Ox O2 Flow Rate 36.6 C 04/03/24 11:55 Height: 5 ft 7 in Weight (kg): 78.925 kg Body Mass Index: 27.2 BMI Classification: Overweight - NPO Other (clear liqids) - Is Patient ?: Yes - Lab Results Current Lab Results: Laboratory Tests 04/03/24 11:30: WBC 11.0 H, RBC 4.25, Hgb 12.5, Hct 36.8 L, MCV 86.6, MCH 29.4, MCHC 34.0, RDW 14.5, Plt Count 166, MPV 10.6, Neut # (Auto) 8.7 H, Lymph # (Aut o) 1.6, Prentiss # (Auto) 0.6, Eos # (Auto) 0.1, Baso # (Auto) 0.0, Absolute Nucleated RBC 0.00, Nucleated RBC % 0.0 04/03/24 11:30: Blood Type O NEGATIVE, Antibody Screen POSITIVE, Antibody Identification See Comments, JAYLA, IgG Specific NEGATIVE, JAYLA, Polyspecific NEGATIVE, JAYLA, C3d Specific NEGATIVE, Crossmatch See Detail Lab results reviewed: Yes Fish Bones: 04/03/24 11:30 Home Medications and Allergies Active Medications Carboprost Tromethamine (Carboprost Tromethamine 250 Mcg/Ml Vial) 250 mcg IM .ONCE PRN PRN Reason: Hemorrhage Fentanyl (Fentanyl 100 Mcg/2 Ml Vial) 50 mcg IVP Q1H PRN PRN Reason: Severe Pain (score 7-10) Hydralazine HCl (Hydralazine Inj 20 Mg/Ml Vial) 5 - 10 mg IVP Q20M PRN; Protocol PRN Reason: SBP> or= 160 OR DBP> or= 110 Hydralazine HCl (Hydralazine Inj 20 Mg/Ml Vial) 10 mg IVP .ONCE PRN; Protocol PRN Reason: SBP> or= 160 OR DBP> or= 110 Lactated Ringer's (Lr) 500 mls @ 999 mls/hr IV PRN PRN PRN Reason: NEEDED PER PROVIDER ORDERS Oxytocin/Sodium Chloride (Pitocin/Sodium Chloride) 500 mls @ 999 mls/hr IV PRN PRN; Protocol PRN Reason: POST- HEMORR PREVENTION Tranexamic Acid (Tranexamic 1,000 Mg/100ml-Nacl) 1,000 mg in 100 mls @ 600 mls/hr IV Q30M PRN PRN Reason: EBL >1200mL and within 3hr Lactated Ringer's (Lr) 1,000 mls @ 125 mls/hr IV .Q8H [facility] Last Admin: 04/03/24 12:18 Dose: 125 mls/hr Ampicillin Sodium 1 gm/ Sodium (Chloride) 100 mls @ 200 mls/hr IV Q4H [facility] Last Admin: 04/03/24 15:58 Dose: 200 mls/hr Labetalol HCl (Labetalol 20 Mg/4 Ml Syringe) 20 - 80 mg IVP Q10M PRN; Protocol PRN Reason: SBP> or= 160 OR DBP> or= 110 Labetalol HCl (Labetalol 20 Mg/4 Ml Syringe) 20 mg IVP .ONCE PRN; Protocol PRN Reason: SBP> or= 160 OR DBP> or= 110 Labetalol HCl (Labetalol 20 Mg/4 Ml Syringe) 20 - 40 mg IVP Q10M PRN; Protocol PRN Reason: SBP> or= 160 OR DBP> or= 110 Lidocaine HCl (Lidocaine 1% 20 Ml Mdv) 20 ml ID .ONCE PRN PRN Reason: PERINEAL REPAIR Stop: 04/06/24 11:50 Methylergonovine Maleate (Methylergonovine 0.2 Mg/Ml Vial) 0.2 mg IM .ONCE PRN PRN Reason: Hemorrhage Misoprostol (Misoprostol 200 Mcg Tablet) 600 mcg BC .ONCE PRN PRN Reason: Hemorrhage Misoprostol (Misoprostol 200 Mcg Tablet) 800 mcg [place] .ONCE PRN PRN Reason: Hemorrhage Nifedipine (Nifedipine 10 Mg Capsule) 10 - 20 mg PO Q20M PRN; Protocol PRN Reason: SBP> or= 160 OR DBP> or= 110 Oxytocin (Oxytocin 10 Unit/Ml Vial) 10 unit IM .ONCE PRN PRN Reason: Step One if no IV access. Sodium Chloride (Sodium Chloride Flush 0.9% 10 Ml Syringe) 10 ml IVP PRN PRN PRN Reason: NEEDED PER PROVIDER ORDERS Sodium Chloride (Sodium Chloride Flush 0.9% 10 Ml Syringe) 10 ml IVP Q8H [facility] Terbutaline Sulfate (Terbutaline 1 Mg/Ml Vial) 0.25 mg SUBQ .ONCE PRN PRN Reason: Tachystole No Known Home Medications 04/14/19 Allergies/Adverse Reactions: Allergies Allergy/AdvReac Type Severity Reaction Status Date / Time No Known Drug Allergies Allergy Verified 08/20/23 11:49 Anes History & Medical History - Anesthetic History Anesthesia Complications: reports: No previous complications - Medical History Cardiovascular: reports: None Pulmonary: reports: None Gastrointestinal: reports: None Urinary: reports: None Neuro: reports: None Musculoskeletal: reports: None Endocrine/Autoimmune: reports: None Skin: reports: None Smoking Status: Never smoker Psychosocial: reports: No issues indicated History of Cancer?: No - Surgical History Gynecologic: reports: Other (ectopic ) Orthopedic: reports: Arthroscopic surgery (smiley knee) - Obstetrical History : 7 Parity: 4 Events: reports: None Complications: reports: Treated for GBS/UTI Exam General: Alert, Oriented x3, Cooperative, No acute distress Dental: WNL Mouth Openin Fingerbreadth Neck Mobility: Normal Mallampati classification: II Thyromental Distance: 4-6 cm Mental/Cognitive Status: Alert/Oriented X3, Normal for patient Plan Anesthesia Type: Epidural Consent for Procedure(s) Verified and Reviewed: Yes Code Status: Attempt Resuscitation ASA classification: 2-Mild systemic disease Is this case an emergency?: No
[2024-04-03] MEDS ORDERED: NALOXONE 0.4 MG/ML VIAL IVP PRN (16:44)
[2024-04-03] MEDS ORDERED: ePHEDrine 50 MG/ML VIAL IVP PRN (16:44)
--- NOTE | 2024-04-03 17:54 | PROVIDER PROGRESS NOTE ---
Labor Progress Note - Uterine Monitoring Uterine Monitoring Mode: positive: External toco Contraction Frequency (min/apart): intermittent Contraction Intensity: positive: Mild to moderate Uterine Resting Tone: positive: Soft - Monitoring Monitor Mode: positive: External ultrasound Heart Rate Baseline: 130s Heart Rate Variability: positive: Moderate (6-25 bmp) Accelerations: positive: Present, 15x15 Decelerations: positive: None Strip Review: positive: Category I - Vaginal Exam Dilation (in cm): 4 Effacement (%): 50 Station: -1 Cervical Position: Midposition - Labor Progress Note Labor Progress Note/Additional Text: S: Patient comfortable with epidural and currently laying in left side lying position with peanut ball in place. She is feeling ready to keep things moving forward and is very reassured that she has now been adequately treated for GBS. Her Noe remains supportive at the bedside. O: FHR baseline 130s, moderate variability, + accels, no decels Contractions palpate moderate intermittently with soft resting tone SVE 4/50/-1, vertex. AROM occurred at 1729 and was noted to be a small amount of clear fluid S/p 2 doses of Ampicillin A: 33yo @ 38.0wks gestation by 8wk U/S Early labor FHR Category I GBS positive P: Continue ampicillin for GBS prophylaxis per protocol. Continuous monitoring. Consider initiation of pitocin for augmentation with titration per protocol. Encouraged position changes in bed on peanut ball. Anticipate .
[2024-04-03] MEDS: OXYTOCIN/SODIUM CHLORIDE 500 ML IV SCH (19:01)
[2024-04-03] MEDS: ROPIVACAINE 0.2% 200 MG/100 ML BAG EP PRN (22:29)
--- NOTE | 2024-04-03 23:01 | PROVIDER PROGRESS NOTE ---
Labor Progress Note - Uterine Monitoring Uterine Monitoring Mode: positive: External toco Contraction Frequency (min/apart): 2-4 Contraction Intensity: positive: Strong Uterine Resting Tone: positive: Soft - Monitoring Monitor Mode: positive: External ultrasound Heart Rate Baseline: 130s Heart Rate Variability: positive: Moderate (6-25 bmp) Accelerations: positive: Present, 15x15 Decelerations: positive: None Strip Review: positive: Category I - Vaginal Exam Dilation (in cm): 5 Effacement (%): 70 Cervical Position: Anterior - Labor Progress Note Labor Progress Note/Additional Text: S: Pt comfortable with her epidural. She is feeling slightly discouraged that things are not progressing more quickly but overall she is doing well. Her is supportive at the bedside. O: FHR baseline 130s, moderate variability, + accels, no decels Contractions palpate strong every 2-4 minutes with soft resting tone SVE 5/70/-1 and vertex. AROM x 5hrs Pitocin @ 14mU/mL A: 33yo @ 38.0wks gestation by LMP c/w 8wk U/S Active labor GBS positive FHR Category I P: Continue pitocin for IOL with titration per protocol. Continuous monitoring. Maintain epidural for pain management. Encouraged rotation in bed on peanut ball. Anticipate .
[2024-04-03] MEDS ORDERED: HYDROCORTISONE 1% CREAM 28 GM TUBE PR PRN (23:49)
[2024-04-03] MEDS ORDERED: WITCH HAZEL/GLYCERIN 1 PAD TOP PRN (23:49)
--- NOTE | 2024-04-04 00:13 | DELIVERY NOTE ---
Delivery Note - Labor Labor: positive: Augmented by ARM, Augmented by oxytocin - Delivery Method Delivery Method: positive: Spontaneous vaginal delivery - Presentation Presentation: positive: Vertex, SLADE - left occiput anterior - Nuchal Cord Nuchal Cord: positive: None - Amniotic Fluid Description Amniotic Fluid Description: positive: Clear - Episiotomy Type Episiotomy Type: positive: None - Laceration Laceration: positive: None - Delivery Outcome Delivery Outcome: positive: Livebirth - [place] : positive: Placed in direct skin contact with mother, Bulb syringe, Stimulated, Warmed, [place] used sex: positive: Male - Cord Cord: positive: 3 vessels - Estimated Blood Loss Estimated Blood Loss (in cc): 200 - Post Delivery Events Post Delivery Events: positive: No post delivery events - Delivery Comments (Free Text/Narrative) Delivery Comments (Free Text/Narrative): Labor: This 33yo @ 38.0wks gestation by LMP c/w 8wk U/S who presented to [facility] on 04/03/2024 @ 1100 in early labor. Upon arrival cervix was 4/50/-1 and vertex with intact membranes. She was noted to be GBS positive and pt desired early admission to ensure adequate GBS treatment. She received 3 total doses of ampicillin for adequate GBS prophylaxis. FHR pattern demonstrated Category I pattern throughout labor. Epidural placed per maternal request. AROM occurred at 1729 on 04/03/2024 and was noted to be a small amount of clear fluid. Pitocin was initiated for augmentation of labor with a maximum infusion rate of 14mU/mL. Pt progressed to c/c/+2 with spontaneous urge to push at 2312. : Normal SVB of viable male infant on 04/03/2024 @ 2319. No nuchal cord. The was placed on maternal abdomen, stimulated, dried, and placed skin to skin. 's were 9/9 at 1 and 5 minutes respectively. Pitocin administered via IV for hemostasis. The umbilical cord was allowed to stop pulsating at which time it was doubly clamped by CNM and cut by FOB. 3VC. Cord blood was obtained. Fundal massage and gentle cord traction applied for active management of the third stage. Placenta delivered spontaneously and intact at 2327. QBL 200mL. Fourth stage: Uterine fundus firm and there is no excessive bleeding. The perineum, vagina, and cervix were inspected and found to be intact. initiated. Family bonding well. Both mother and baby were left in stable condition.
[2024-04-04] MEDS: IBUPROFEN 800 MG TABLET PO SCH (02:10)
[2024-04-04] MEDS: ACETAMINOPHEN 500 MG TABLET PO SCH (02:10)
[2024-04-04] MEDS: DOCUSATE SODIUM 100 MG CAPSULE PO SCH (09:39)
[2024-04-05 10:21] VITALS: BP 108/73; O2SAT 98
--- NOTE | 2024-04-05 11:14 | Discharge Plan ---
Discharge Plan Problem Reviewed?: Yes Disposition: Home, Self Care Condition: Good Diet: Regular Activity Restrictions: No Restrictions Shower Restrictions: No Driving Restrictions: No Weight Bearing: Full Weight Instruction Topics: Vaginal After, Nutrition , Self Care No Smoking: If you smoke, Please STOP! Call for help. Follow-up with: Komal Jo CNM, [facility] [Provider Admit Priv/Credential] - 1 Week
--- NOTE | 2024-04-05 11:25 | DISCHARGE SUMMARY ---
Discharge Summary Condition at Discharge: Good Discharge Disposition: 01 Home, Self Care - HOSPITAL COURSE Hospital Course: Date of Admission: 04/03/2024 Date of Discharge: 04/04/2024 Diagnosis on Admission: 1. 33yo @ 38.0wks gestation 2. Early labor 3. FHR Category I 4. GBS positive Diagnosis on Discharge: 1. 33yo PPD#2 s/p TSVB viable male 2. 3. Normal recovery Brief History: She has been a patient of [facility] since her transfer of care at 34wks gestation. Her has been uncomplicated. Upon arrival she was n oted to be 4/70/-1 and vertex with intact membranes. Secondary to her GBS positive status and advanced stage of dilation, in addition to her history of precipitous delivery, she requested early admission for initiation of antibiotics for GBS prophyalxis. She received adequate GBS prophylaxis which was followed by AROM and pitocin for augmentation of labor. She progressed to spontaneously deliver a viable male infant on 04/03/2024 at 2319 over intact perineum. Apgars were 9/9 at 1 and 5 minutes respectively. QBL 200mL. She has been doing well in her course. She is ambulating and minoo erating a regular diet. She is urinating without difficulty and her lochia is normal. Her pain is well controlled with oral medications. She will be discharged home today on day #2 with instructions to continue taking her vitamin while and to continue taking ibuprofen and tylenol over the counter as needed for pain management. She intends to follow up with myself at [facility] in 1 week for routine visit or sooner if needed. She has been given precautions to call if she has any worsening fevers, chills, abdominal pain, increased vaginal bleeding or foul smelling vaginal lochia. Physical Exam: Normocephalic, atraumatic. Heart RRR w/o M/G/R, lungs CTAB, abdomen soft and nontender with fundus firm at U-1, perineum intact, light lochia rubra, bilateral LE no edema. Mood is good. - ALLERGIES Allergies/Adverse Reactions: Allergies Allergy/AdvReac Type Severity Reaction Status Date / Time No Known Drug Allergies Allergy Verified 04/03/24 17:20 - MEDICATIONS Home Medications: Ambulatory Orders Medication Instructions Recorded Confirmed No Known Home Medications 04/14/19 04/04/24 - LABS Result Diagrams: 04/03/24 11:30
--- NOTE | 2024-04-05 11:27 | PROVIDER PROGRESS NOTE ---
Subjective - Subjective Subjective: S: withtout difficulty and she is bonding well with her baby. She was having some increased anxiety surrounding baby's noisy breathing but after talking extensively with the desk sergeant is feeling reassured and less anxious. Reports her bleeding is decreased and is light. Her pain is well controlled with oral medications. Her is supportive at the bedside. O: Normocephalic, atraumatic. Heart RRR w/o M/G/R, lungs CTAB, abdomen soft and nontender with fundus firm at U, perineum intact, light lochia rubra, bilateral LE no edema. Mood is good. A: 33yo -->P5 PPD#1 s/p TSVD viable male Normal recovery P: Continue routine care and medications. Evaluate for discharge home tomorrow. Objective - Vital Signs/Intake & Output Vital Signs: Vital Signs x48h Temp Pulse Resp BP Pulse Ox 04/05/24 10:16 36.6 C 70 16 108/73 98 04/05/24 04:24 36.4 C L 52 L 16 114/69 97 Intake & Output: Intake & Output 04/02/24 04/03/24 04/04/24 04/05/24 23:59 23:59 23:59 23:59 Intake Total 300 1000 1200 Output Total 900 Balance -600 1000 1200 - Lab Results Fish Bones: 04/03/24 11:30
--- NOTE | 2024-04-05 15:09 | Labor Flowsheet ---
Labor Flowsheet Datetime Report Generated by CPN: 04/05/2024 15:08 Datetime: 04/05/2024 12:09 Pulse: 73 SpO2 (%): 98 LaborFlag: Labor Datetime: 04/05/2024 12:08 VITAL SIGNS NBP Sys/Mague/Mean (mmHg): 108 : 60 : 71 Datetime: 04/04/2024 04:39 Membranes Ruptured Date/Time: 04/03/2024 17:29 Amniotic Fluid Odor: Normal Datetime: 04/03/2024 19:15 UTERINE ACTIVITY Monitor Mode: External Frequency (min): occasional Quality: Mild Duration (sec): 60-90 Pattern: Normal: <= 5 Contractions in 10 Minutes Resting Tone (Palpate): Relaxed ASSESSMENT A Monitor Mode: External US FHR Baseline Rate : 125 Variability: Moderate 6-25 bpm Accelerations: 15X15 Decelerations: None Category: Category I Datetime: 04/03/2024 19:07 MEDICATIONS Pitocin (milliunits): Started @ 2 Datetime: 04/03/2024 18:45 Oxygen Method: Room Air Datetime: 04/03/2024 18:35 COMMUNICATION Communication: Report Given to @ Komal Deysi [facility] Communication Comments: Ctx 4-6 min. order recieced for pitiocin augmenation per protocol Datetime: 04/03/2024 18:25 Temperature (C): 36.5 Patient Position/Activity: Right Tilt I/O Interventions: Onofre Cath Inserted Datetime: 04/03/2024 17:45 Monitor Interventions for UA: [place] Adjusted FHR Baseline Changes: No Baseline Change Datetime: 04/03/2024 17:40 Patient Care Comments: peanut ball Datetime: 04/03/2024 17:29 Membrane Status: Ruptured Membranes Rupture Method: Artificial Amniotic Fluid Color: Clear Amniotic Fluid Amount: Small Datetime: 04/03/2024 17:27 VAGINAL EXAM Dilatation (cm): 4.0 Effacement (%): 50 Station: -1 Exam by: Komal Deysi CNM Datetime: 04/03/2024 16:30 Epidural Procedure Other: Pump Started Datetime: 04/03/2024 16:28 Epidural Procedure: Test Dose Datetime: 04/03/2024 16:18 Epidural Positioning: Sitting Datetime: 04/03/2024 16:15 PATIENT CARE IV/Blood Work: IV Infusing per Order Datetime: 04/03/2024 16:13 PROCEDURE TIME OUT Procedure Verify: Correct Patient Identity; Accurate Procedure Consent Form; Agreement on Procedure to be Done; Correct Patient Position; Addressed Need to Administer Antibiotics or Fluids for Irrigat ion; Safety Precautions Based on Patient History or Medication Use ANESTHESIA Anesthesia Plans: Epidural Anesthesia Comments: Adraine Wendy at bedside Datetime: 04/03/2024 16:00 Antibiotics: Ampicillin IV 1 Gm Datetime: 04/03/2024 11:00 Stage of : Labor Respirations: 17 Temperature Route: Oral
== END 2024-04-05 11:05 | disposition home or self-care (01) | DRG 807 ==
LOC: WFO 10:50 → FBP 10:52 → WFO 10:59 → FBP 11:00
PROVIDERS: ADMIT Nurse Practitioner Obstetrics & Gynecology; ATTEND Nurse Practitioner Obstetrics & Gynecology
PROC: 10E0XZZ Delivery of Products of Conception, External Approach (ICD-10-PCS; principal; 2024-04-03)
PROC: 10907ZC Drainage of Amniotic Fluid, Therapeutic from Products of Conception, Via Natural or Artificial Opening (ICD-10-PCS; 2024-04-03)
DX: O99.824 Streptococcus B carrier state complicating childbirth (principal); Z37.0 Single live birth; Z3A.38 38 weeks gestation of pregnancy
CPT/HCPCS: 59409; 85025; 86850; 86870; 86880; 86900; 86901; 86922; A9270; J7120